=== PATIENT | female | born 1945 | race Two or more races ===

== ENCOUNTER 2016-10-21 12:10 | Day surgery (SDC) | payer OTHER ==
[2016-10-20 16:51] VITALS: BMI 73.7
[2016-10-21] VITALS (16 sets, daily range): BP systolic 143–176; BP diastolic 55–75; PULSE 81–93; RESP 12–18; Ht 154.9 cm; Wt 74.3 kg
[~2016-10-21] VITALS: Ht 154.9 cm; Wt 74.3 kg
--- NOTE | 2016-10-21 12:58 | HPN ---
Date/Time of Note Date/Time of Note DATE: 10/21/16 TIME: 12:57 Interval H&P Admission Note Pt. seen H&P reviewed: No system changes CHAPO LOPEZ MD Oct 21, 2016 12:57
--- NOTE | 2016-10-21 13:51 | RADRPT ---
PROCEDURE: XR Chest 1 View. CLINICAL INDICATION: Abnormal breath sounds, preop. TECHNIQUE: AP view of the chest were obtained. COMPARISON: None. FINDINGS: The heart size is within normal limits. Calcified atherosclerosis is noted in the aorta. No consol idations are identified. No pneumothorax is seen. Osseous structures are intact. IMPRESSION: Calcified atherosclerosis in the aorta. Clear lungs. RPTAT: AA .Jose Moss MD, Date Time Electronically viewed and signed by .Jose Moss MD, MD on 10/21/2016 13:50 .P/
[2016-10-21 14:02] LABS: BASOPHILS % 0.5 % (0.0-2.0); EOSINOPHILS # 0.1 10^3/ul (0.0-0.5); EOSINOPHILS % 1.5 % (0.0-7.0); HEMATOCRIT 42.6 % (37.0-47.0); LYMPHOCYTES % 31.6 % (15.0-51.0); MEAN CORPUSCULAR HEMOGLOBIN 33.5 pg (29.0-33.0); MEAN CORPUSCULAR HGB CONC 35.1 g/dl (32.0-37.0); MEAN CORPUSCULAR VOLUME 95.4 fl (82.0-101.0); MEAN PLATELET VOLUME 9.2 fl (7.4-10.4); MONOCYTE # 0.6 10^3/ul (0.3-0.9); NEUTROPHIL # 3.6 10^3/ul (1.6-7.5); NEUTROPHILS % 56.4 % (39.0-77.0); PLATELET COUNT 228 10^3/UL (140-440); RED BLOOD COUNT 4.47 10^6/ul (4.20-5.40); RED CELL DISTRIBUTION WIDTH 12.4 % (11.5-14.5); UNCORRECTED WBC 6.3 10^3/ul (4.8-10.8); WHITE BLOOD COUNT 6.3 10^3/ul (4.8-10.8)
[2016-10-21] MEDS ORDERED: OMEP20CA16 PO (14:04)
[2016-10-21] MEDS ORDERED: NEBI10TA2 PO (14:04)
[2016-10-21] MEDS ORDERED: AMLO-145 PO (14:04)
[2016-10-21 14:05] LABS: CONDITION 1
[2016-10-21 14:11] LABS: INR 1.09; PROTIME 14.1 Sec (12.2-14.2); PT RATIO 1.1
[2016-10-21 14:16] LABS: CREATININE 0.69 mg/dl (0.44-1.00); POTASSIUM 4.6 mmol/L (3.5-5.1)
[2016-10-21 14:18] LABS: PARTIAL THROMBOPLASTIN TIME 26.3 Sec (25.0-35.0)
[2016-10-21 14:19] LABS: CALCIUM 9.3 mg/dl (8.4-10.2)
[2016-10-21] MEDS ORDERED: LIDOCAINE 1% (MPF) 30 ML INJ ONE (15:00)
[2016-10-21] MEDS ORDERED: MIDAZOLAM 1 MG/ML 2 ML INJ ONE (15:03)
[2016-10-21] MEDS ORDERED: FENTAnyl 50 MCG/ML VIAL ONE (15:03)
[2016-10-21] MEDS ORDERED: hydrALAzine 20 MG INJ ONE (15:19)
[2016-10-21] MEDS ORDERED: NEOMYC/POLYMYX/BACIT 30 GM OINT ONE (15:27)
[2016-10-21] MEDS ORDERED: ONDANSETRON 4 MG INJ IV PRN (15:30)
[2016-10-21] MEDS ORDERED: MEPERIDINE 25 MG INJ IV PRN (15:30)
[2016-10-21] MEDS ORDERED: LABETALOL HCL 20MG INJ IV PRN (15:30)
[2016-10-21] MEDS ORDERED: DIPHENHYDRAMINE 50 MG INJ IV PRN (15:30)
[2016-10-21] MEDS ORDERED: HYDROmorphONE (0.2 MG/ML) 10ML SYG IV PRN ×2 (15:30)
[2016-10-21] MEDS ORDERED: FENTAnyl 50 MCG/ML VIAL IV PRN (15:30)
[2016-10-21] MEDS ORDERED: hydrALAzine 20 MG INJ IV PRN (15:30)
[2016-10-21] MEDS ORDERED: CEFAZOLIN 1 GM INJ ONE (15:35)
--- NOTE | 2016-10-22 05:04 | OPR ---
DATE OF OPERATION: 10/21/2016 PREOPERATIVE DIAGNOSIS: Left wrist ganglion cyst. POSTOPERATIVE DIAGNOSIS: Left wrist ganglion cyst. OPERATION PERFORMED: Left wrist dorsal ganglion cyst excision. ESTIMATED BLOOD LOSS: 10 mL. COMPLICATIONS: None. DESCRIPTION OF PROCEDURE: Patient taken to the operating room and general anesthetic given with int ravenous sedation. Local anesthesia was also used. The patient had a prior surgery for a dorsal ga nglion cyst excision. Apparently, the patient had a recurrence. At this time, the patient is broug ht back to surgery for excision of the recurring mass in the dorsum of the left wrist. Patient taken to the operating room. A gram of Kefzol given for prophylaxis. Intravenous sedation was provided. Tourniquet upon the left arm, and 1% Xylocaine used for local anesthesia. Prior inci jamin utilized on the dorsal aspect of the wrist, with an incision being in orientation. The c yst was noted with firm mass of almost calcified material. It was excised and sent for pathologic e valuation. Wound irrigated with antibiotic solution. Hemostasis ascertained using cautery. The ma ss measured 1/2 inch x 3/4 inch in size. The 1 inch incision was closed with 2-0 nylon suture. Com pression bandage applied. Anesthetic reversed. The patient taken to recovery in stable condition. Dictated By: CHAPO GARCIA/DANIEL Conf#: [id number] DID#: [id number]
--- NOTE | 2016-10-25 10:59 | RADRPT ---
Vent Rate: 61 bpm RR Interval: 0 msec NV Interval: 166 msec QRS Duration: 78 msec QT Interval: 420 msec QTC Interval: 422 msec P-R-T [place]: 30 - 56 - 76 degrees Normal sinus rhythm Normal ECG Electronically Signed By: Alistair Caal [id number]
== END 2016-10-21 17:40 | disposition home or self-care (01) ==
LOC: SDS 12:10
PROVIDERS: ATTEND Specialist
DX: M67.432 Ganglion, left wrist (principal); I10 Essential (primary) hypertension; E66.9 Obesity, unspecified; Z68.31 Body mass index [BMI] 31.0-31.9, adult
CPT/HCPCS: 25111; 71010; 80048; 85025; 85610; 85730; 88304; 93005; J0360; J0690; J2250; J3010

== ENCOUNTER 2017-01-03 07:18 | Day surgery (SDC) | payer OTHER, BC ==
[~2017-01-03] VITALS: Ht 152.4 cm; Wt 75.2 kg
[~2017-01-03 07:18] MED LIST: AMLO-145 PO; NEBI10TA2 PO; OMEP20CA16 PO
[2017-01-03 08:22] VITALS: Ht 152.4 cm; Wt 75.2 kg
[2017-01-03] MEDS ORDERED: ASPI-664 PO (08:31)
[2017-01-03] MEDS ORDERED: PROPOFOL 20 ML ONE (08:54)
[2017-01-03 08:55] VITALS: BP 191/86; PULSE 70; RESP 12
[2017-01-03] MEDS ORDERED: FENTAnyl 50 MCG/ML VIAL ONE (08:55)
[2017-01-03] MEDS ORDERED: MIDAZOLAM 1 MG/ML 2 ML INJ ONE (08:55)
[2017-01-03 09:50] VITALS: BP 141/55; PULSE 54; RESP 18
--- NOTE | 2017-01-03 15:27 | GILP ---
DATE OF PROCEDURE: 01/03/2017 PROCEDURE PERFORMED: Esophagogastroduodenoscopy with biopsy. INDICATION: A 71-year-old female undergoing this procedure for heartburn, regurgitation, chronic in nature and not responding to PPI. The purpose is to evaluate upper GI tract and find out the sever ity of the GERD and rule out Castro's. The risks of the procedure, related and unrelated complicat ions, anesthetic risks and alternatives discussed and informed consent was obtained. DESCRIPTION OF PROCEDURE: Patient was sedated by Dr. Michaud. With optimum sedation, scope was pass ed under direct observation into the oropharyngeal cavity. The introitus of the esophagus was leatha l. Scope was advanced further down into the esophagus. Z line was at 30 cm. The patient had a 4 c m hiatal hernia. There was a ring at the GE junction, a Schatzki's ring, which was wide open and th ere was regurgitation of the gastric content in the mid portion of the esophagus. Stomach mucosa re vealed severe gastritis. Random 4 biopsies obtained to rule out H. pylori infection. Entered into duodenum, first and second part including ampulla appeared normal. Retroversion done in the stomach , again hiatal hernia confirmed. Scope was straightened out and removed with good patient tolerance . IMPRESSION 1. The Z line is a regular at 30 cm. 2. Nonobstructing Schatzki's ring. 3. A 4 cm hiatal hernia. 4. Acute gastritis. 5. Normal duodenum and ampulla. 6. No varicose vein identified. PLAN: 1. Continue proton pump inhibitor. 2. Weight reduction. 3. Dietary modification. 4. Lifestyle changes. 5. Exercise. 6. We will titrate the dose of proton pump inhibitor based on the patient's symptoms and review his topathology. Dictated By: CHRISTIN NGUYỄN/DANIEL Conf#: [id number] DID#: [id number]
== END 2017-01-03 11:16 | disposition home or self-care (01) ==
LOC: GIL 07:18
PROVIDERS: ATTEND Internal Medicine Gastroenterology
DX: K44.9 Diaphragmatic hernia without obstruction or gangrene (principal); K22.2 Esophageal obstruction; K29.00 Acute gastritis without bleeding; I10 Essential (primary) hypertension
CPT/HCPCS: 43239; 88305; 88312; J2250; J3010

== ENCOUNTER 2018-12-13 12:41 | Emergency (ER) | payer OTHER, BC ==
[~2018-12-13] VITALS: Ht 167.6 cm; Wt 67.7 kg
[~2018-12-13 12:41] MED LIST changes: +ASPI-817 PO
[2018-12-13 12:47] VITALS: Ht 167.6 cm; Wt 67.7 kg
--- NOTE | 2018-12-13 16:33 | ERD ---
ER Documentation Chief Complaint Chief Complaint Complains of left sided numbness x 4 days HPI 73-year-old female history of hypertension, hyperlipidemia, gastritis/GERD and hiatal hernia presents the ED complaining of weakness and numbness. Patient reports a approximately 1 year history of episodes of unprovoked, generalized nu mbness lasting approximately 10 minutes, occurring once a week but over the last 4 days these episodes have markedly increased in frequency to 4-5 times per day. Last night when she awoke from sleep was walking to the bathroom felt off balance, left side of her body was weak was veering to the left while walking. Symptoms were not accompanied by headache or visual changes. Now asymptomatic. Denies chest pain, palpitations shortness of breath. No abdominal pain, nausea, vomiting, diarrhea or constipation. No hematochezia or melena. No URI symptoms or cough. No dysuria, polyuria, hematuria or flank pain. Denies anorexia, weight loss, night sweats, fevers or chills. Evaluated by her PMD for similar symptoms and had a carotid Doppler several weeks ago but does not know the results. ROS All systems reviewed and are negative except as per history of present illness. Medications Home Meds Reported Medications Nebivolol Hcl* (Bystolic*) 10 Mg Tablet, 10 MG PO DAILY, #30 TAB 12/13/18 Omeprazole* (Omeprazole*) 20 Mg Capsule.dr, 20 MG PO DAILY, #30 CAP 12/13/18 Hydrochlorothiazide* (Hydrochlorothiazide*) 12.5 Mg Tablet, 12.5 MG PO DAILY, #30 TAB 12/13/18 Simvastatin* (Simvastatin*) 5 Mg Tablet, 5 MG PO QHS, #30 TAB 12/13/18 Losartan Potassium* (Losartan Potassium*) 50 Mg Tablet, 50 MG PO DAILY, TAB 12/13/18 Discontinued Reported Medications Aspirin* (Aspirin* EC) 81 Mg Tablet.dr, 81 MG PO DAILY, TAB 01/03/17 Omeprazole* (Omeprazole*) 20 Mg Capsule.dr, 20 MG PO DAILY, #30 CAP 10/21/16 Amlodipine Besylate* (Amlodipine Besylate*) 5 Mg Tablet, 5 MG PO DAILY, #30 TAB 10/21/16 Nebivolol Hcl* (Bystolic*) 10 Mg Tablet, 10 MG PO DAILY, #30 TAB 10/21/16 Allergies Allergies: Coded Allergies: Penicillins (Verified Allergy, Unknown, 12/13/18) PMhx/Soc Reviewed in chart. As per HPI. History of Surgery: Yes (LENIN, L WRIST CYST REMOVAL) Anesthesia Reaction: No Hx Neurological Disorder: No Hx Respiratory Disorders: No Hx Cardiac Disorders: Yes (HTN) Hx Psychiatric Problems: No Hx Miscellaneous Medical Probl: No Hx Alcohol Use: No Hx Substance Use: No Hx Tobacco Use: No FmHx No sudden cardiac or cancer Physical Exam Vitals Vital Signs Date Temp Pulse Resp B/P (MAP) Pulse Ox O2 O2 Flow FiO2 Time Delivery Rate 12/13/18 61 19 139/58 99 Room Air 20:30 (85) 12/13/18 62 17 99 Room Air 20:00 12/13/18 67 17 164/62 98 Room Air 19:00 (96) 12/13/18 59 13 160/53 100 Room Air 18:51 (88) 12/13/18 63 17 185/65 100 Room Air 16:46 (105) 12/13/18 98.3 63 20 200/86 100 12:47 (124) Physical Exam Const: Alert, elderly in no acute distress Head: Atraumatic Eyes: Pupils equal reactive to light. Extraocular movements are intact. No nystagmus. Normal Conjunctiva ENT: Normal External Ears, Nose and Mouth. Neck: Full range of motion. No lymphadenopathy or masses. No thyromegaly. No meningismus. Carotids 2+ bilaterally without bruits. Resp: Breath sounds are equal and clear to auscultation bilaterally Cardio: Regular rate and rhythm, no murmurs Abd: Soft, non tender, non distended. No masses or abnormal pulsations. No rebound or guarding. Normal bowel sounds Skin: No petechiae or rashes Back: No midline or flank tenderness Ext: No cyanosis, or edema Neur: Awake and alert. Cranial nerves II through XII are grossly intact. No pronator drift. Motor and sensory equal bilaterally. DTRs are symmetrical. Psych: Normal Mood and Affect. Patient does not appear anxious or depressed. Result Diagram: 12/13/18 1726 12/13/18 1726 Results 24 hrs Laboratory Tests Test 12/13/18 17:26 White Blood Count 8.0 10^3/ul Red Blood Count 4.60 10^6/ul Hemoglobin 15.1 g/dl Hematocrit 43.9 % Mean Corpuscular Volume 95.4 fl Mean Corpuscular Hemoglobin 32.8 pg Mean Corpuscular Hemoglobin Concent 34.4 g/dl Red Cell Distribution Width 11.9 % Platelet Count 241 10^3/UL Mean Platelet Volume 10.8 fl Immature Granulocytes % 0.400 % Neutrophils % 50.1 % Lymphocytes % 36.6 % Monocytes % 10.8 % Eosinophils % 1.6 % Basophils % 0.5 % Nucleated Red Blood Cells % 0.0 /100WBC Immature Granulocytes # 0.030 10^3/ul Neutrophils # 4.0 10^3/ul Lymphocytes # 2.9 10^3/ul Monocytes # 0.9 10^3/ul Eosinophils # 0.1 10^3/ul Basophils # 0.0 10^3/ul Nucleated Red Blood Cells # 0.0 10^3/ul Sodium Level 142 mmol/L Potassium Level 4.7 mmol/L Chloride Level 104 mmol/L Carbon Dioxide Level 27 mmol/L Anion Gap 11 Blood Urea Nitrogen 16 mg/dl Creatinine 0.83 mg/dl Est Glomerular Filtrat Rate mL/min mL/min Glucose Level 101 mg/dl Calcium Level 9.8 mg/dl Total Bilirubin 0.8 mg/dl Direct Bilirubin 0.00 mg/dl Indirect Bilirubin 0.8 mg/dl Aspartate Amino Transf (AST/SGOT) 24 IU/L Alanine Aminotransferase (ALT/SGPT) 29 IU/L Alkaline Phosphatase 82 IU/L Troponin I < 0.012 ng/ml Total Protein 8.4 g/dl Albumin 4.6 g/dl Globulin 3.80 g/dl Albumin/Globulin Ratio 1.21 Procedures/MDM DOCUMENTS REVIEWED: ED nurse, no prior records EKG: Time: 17:34. Sinus bradycardia. Ventricular rate 57. Normal [place] QRS. No ST segment elevation or depression. No ectopy. My Interpretation IMAGING: Chest AP portable. Cardiac silhouette is normal. The costophrenic angles are clear. No effusions or infiltrates. Aortic atherosclerosis. No abnormalities of the bony thorax. My interpretation. PROCEDURE: CT brain without contrast. CLINICAL INDICATION: Weakness. TECHNIQUE: CT scan of the brain was performed on a multi-detector high- resolution CT scanner. Contiguous axial images were obtained from the skull base to the vertex without intravenous contrast. Coronal and sagittal reformatted images were also obtained. Images were reviewed on the PACS workstation. DICOM images are available. One or more of the following dose reduction techniques were used: - Automated exposure control. - Adjustment of the mA and/or kV according to patient size. - Use of iterative reconstruction technique. Exam CTD/vol = 39.39 mGy. Total exam DLP = 634.23 mGy-cm. COMPARISON: None. FINDINGS: The ventricles and cortical sulci are prominent consistent with mild age related volume loss. There are patchy areas of low attenuation within the pe riventricular white matter consistent with mild chronic ischemic changes secondary to small vessel disease. There is no mass effect or midline shift. There is no intracranial hemorrhage or abnormal extra-axial collection. There are atherosclerotic calcifications within bilateral distal internal carotid arteries. The calvarium is intact. There is no evidence of fracture. Visualized paranasal sinuses and mastoid air cells are clear. IMPRESSION: No acute intracranial abnormality identified. Mild age related volume loss and chronic ischemic white matter disease. Cerebral atherosclerosis. .Werner Duffy MD, MD Date Time Electronically viewed and signed by .Werner Duffy MD, on 12/13/2018 18:05 .T/ ROCEDURE: MR Brain. CLINICAL INDICATION: Weakness TECHNIQUE: An MRI of the brain was performed utilizing the following sequences: Sagittal and axial T1 weighted, axial T2 weighted, axial FLAIR, coronal GRE, axial diffusion weighted (EPI technique [id number]), axial ADC mapping. The images were reviewed on a high-resolution PACS workstation. COMPARISON: CT brain from 12/13/2018 FINDINGS: MRI BRAIN: No diffusion weighted abnormalities are seen to suggest the presence of acute ischemia or recent infarct. No susceptibility abnormality is seen. There is no intracranial hemorrhage, mass effect, or midline shift. No extra-axial fluid collection is seen. Mild diffuse cerebral volume loss is seen. Mild to moderate amount of scattered nonspecific white matter disease in the periventricular and deep white matter is seen. Normal flow voids are visible the proximal intracranial arteries and dural sinuses, indicating patency. A complete opacification of the right maxillary sinus is seen with mucosal thickening and an air-fluid level. Mild mucosal thickening in the right anterior ethmoid air cells is seen. The remaining visualized paranasal sinuses are clear. The mastoid air cells, orbits, and calvarium are unremarkable. IMPRESSION: 1. No acute intracranial pathology. 2. Mild volume loss with mild to moderate chronic microvascular ischemic ch anges. 3. Right maxillary sinus disease which includes an air-fluid level which may represent acute sinusitis in the correct clinical setting. RPTAT: HPNM Physician Yolanda Date Time Electronically viewed and signed by Keny Pearson Physician on 12/13/2018 18:44 / CALL/CONSULTATIONS: Time: 17:20. Dr Nesbitt. PMD. Does not recall the patient and as the office is closed cannot review the medical records. MEDICAL DECISION MAKIN-year-old female history of hypertension, hyperlipidemia, gastritis/GERD and hiatal hernia presents the ED complaining of weakness and numbness. CBC to evaluate for anemia, leukocytosis and thrombocytopenia is unremarkable. Chemistry reveals no evidence of renal insufficiency or electrolyte abnormalities. No hypocalcemia. EKG is negative for ischemia, heart block or dysrhythmia. Troponin is negative. Chest x-ray reveals no evidence of congestive heart failure, pneumonia or mediastinal widening. Aortic dissection is unlikely. CT of the brain to evaluate for mass, ischemia, hemorrhage and hydrocephalus reveals chronic ischemic changes but is otherwise unremarkable for any acute process. As the patient is having symptoms of possible TIA/CVA a MRI of the brain is performed and is negative for ischemia. Patient apparently had recent carotid Doppler and can follow-up with her physician tomorrow to get the results. She has already taken aspirin today. Poorly controlled hypertension that resolved in the ED without treatment. Patient complains of numbness of uncertain etiology. the absence of signs of serious, acute disease process patient is stable for discharge with precautionary instructions and urgent, outpatient follow-up as counseled. Though the patient's latest blood pressure was elevated (>120/80), the patient has a known history of hypertension and urged to pursue adjustment of their medical therapy within a week with their primary care physician. Please refer to the medication reconciliation form for the current list of hypertensive medications. Counseled patient and family regarding diagnostic workup, diagnosis and need for followup. Understands the etiology of her symptoms are not definitively established and urgent, outpatient follow-up is mandatory or return to the ED immediately if symptoms recur or any other concerns. Departure Diagnosis: Primary Impression: Weakness Additional Impressions: Numbness Poorly-controlled hypertension Condition: Stable OMAR CAIN MD Dec 13, 2018 16:33
[2018-12-13] MEDS ORDERED: SIMV5TAB14 PO (17:35)
[2018-12-13] MEDS ORDERED: LOSA50TA14 PO (17:35)
[2018-12-13] MEDS ORDERED: OMEP20CA16 PO (17:36)
[2018-12-13] MEDS ORDERED: NEBI10TA2 PO (17:36)
[2018-12-13] MEDS ORDERED: HYDR12.58 PO (17:36)
[2018-12-13 20:30] VITALS: BP 139/58; PULSE 61; RESP 19
== END 2018-12-13 20:30 | disposition home or self-care (01) ==
LOC: E/R 12:41
DX: I10 Essential (primary) hypertension (principal); R53.1 Weakness
CPT/HCPCS: 36415; 70450; 70551; 71045; 80053; 84484; 85025; 93005